=== PATIENT | female | born 1985 | race Caucasian/White ===

== ENCOUNTER 2020-02-13 03:18 | Emergency (ER) | payer OTHER ==
[~2020-02-13] VITALS: Ht 170.2 cm; Wt 61.4 kg
[2020-02-13 04:59] VITALS: BP 122/78
== END 2020-02-13 05:01 ==
LOC: ER 03:19
DX: S00.83XA Contusion of other part of head, initial encounter (principal); R51.9 Headache, unspecified; R07.89 Other chest pain; R11.2 Nausea with vomiting, unspecified; R10.84 Generalized abdominal pain; F10.129 Alcohol abuse with intoxication, unspecified; Z72.89 Other problems related to lifestyle; X58.XXXA Exposure to other specified factors, initial encounter; Y93.89 Activity, other specified; Y92.89 Other specified places as the place of occurrence of the external cause; Y99.8 Other external cause status; Y90.9 Presence of alcohol in blood, level not specified
CPT/HCPCS: 70450; 72125; 99285